=== PATIENT | female | born 1980 | race Caucasian/White ===

== ENCOUNTER 2019-06-07 09:36 | Emergency (ER) | payer BC ==
[2019-06-07] MEDS ORDERED: Sodium Chloride 0.9% 10 ML Syringe FLUSH PRN (10:12)
[2019-06-07] MEDS ORDERED: Loratadine 10 MG Tab PO ONE (10:12)
[2019-06-07] MEDS ORDERED: Sodium Chloride 0.9% 1,000 ML IV SCH (10:15)
--- NOTE | 2019-06-07 11:47 | EDM.PDOC ---
ED HPI GENERAL MEDICAL PROBLEM - General Chief Complaint: Allergic Reaction Stated Complaint: POSS ALLERGIC REACTION TO MED Time Seen by Provider: 06/07/19 10:01 Source of Information: Reports: Patient, RN Notes Reviewed - History of Present Illness INITIAL COMMENTS - FREE TEXT/NARRATIVE: Patient was sent here from [facility] for further evaluation and treatment Assubel allergic reaction. Patient took a dose of Profen this morning for headache and then started feeling weak, dizzy, nauseated. She felt like there was swelling of her tongue. [place] some numbness of her upper extremities rash or hives. Walk-in clinic [facility] was uncomfortable with the symptoms and transferred her here for further evaluation. Does not have history of known allergies. He has taken ibuprofen many times in the past without difficulty. She did not pass out this morning but did feel quite lightheaded for a period of time, feels better now. This and tingling is gone but she states it "comes and goes". Continues to have no rash or hives on arrival to ED. 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: - Past Surgical History Musculoskeletal Surgical History: Reports: Shoulder Surgery, Other (See Below) Other Musculoskeletal Surgeries/Procedures:: Recent shoulder lap for spur Social & Family History - Family History Family Medical History: Noncontributory - Tobacco Use Smoking Status *Q: Never Smoker Second Hand Smoke Exposure: No - Caffeine Use Caffeine Use: Reports: Coffee - Recreational Drug Use Recreational Drug Use: No ED ROS ALLERGIC REACTION - Review of Systems Review Of Systems: See Below Constitutional: Denies: Fever, Chills, Diaphoresis HEENT: Reports: Other (Patient felt like her tongue was swelling at home and at the clinic, better at time of evaluation). Denies: Throat Pain Respiratory: Denies: Shortness of Breath, Wheezing Cardiovascular: Denies: Chest Pain GI/Abdominal: Reports: Nausea. Denies: Abdominal Pain, Vomiting Musculoskeletal: Denies: Arm Pain Skin: Denies: Rash, Erythema Neurological: Reports: Dizziness (Neurolysed), Headache, Numbness, Tingling (On) , Weakness ED EXAM GENERAL NO PERIP PULSE - Physical Exam Exam: See Below General Appearance: Alert, Anxious (Mild) Eye Exam: Bilateral Eye: PERRL Throat/Mouth: Normal Inspection, Normal Oropharynx Head: No: Facial Swelling Neck: Supple, Full Range of Motion Respiratory/Chest: No Respiratory Distress, Lungs Clear, Normal Breath Sounds. No: Rhonchi, Wheezing Cardiovascular: Regular Rate, Rhythm GI/Abdominal: Non-Tender Back Exam: No: CVA Tenderness (L), CVA Tenderness (R) Extremities: Normal Inspection, Normal Range of Motion Neurological: Alert, Oriented, No Motor/Sensory Deficits Skin Exam: Warm, Dry, Normal Color, No Rash Course - Vital Signs Last Recorded V/S: Last Vital Signs Temp 97.0 F 06/07/19 09:45 Pulse 61 06/07/19 09:45 Resp 14 06/07/19 09:45 BP 126/85 06/07/19 09:45 Pulse Ox 99 06/07/19 09:45 - Orders/Labs/Meds Orders: Active Orders 24 hr Category Date Time Status POC Glucose [Blood Glucose Check, Bedside] [RC] ONETIME Care 06/07/19 10:11 Active Peripheral IV Care [RC] . DIRECTED Care 06/07/19 10:12 Active Peripheral IV Insertion Adult [OM.PC] Stat Oth 06/07/19 10:12 Ordered Labs: Laboratory Tests 06/07/19 06/07/19 06/07/19 Range/Units 10:15 10:15 10:20 WBC 6.22 (3.98-10.04) K/mm3 RBC 4.77 (3.98-5.22) M/mm3 Hgb 13.9 (11.2-15.7) gm/dl Hct 42.1 (34.1-44.9) % MCV 88.3 (79.4-94.8) fl MCH 29.1 (25.6-32.2) pg MCHC 33.0 (32.2-35.5) g/dl RDW Std Deviation 38.8 (36.4-46.3) fL Plt Count 204 (182-369) K/mm3 MPV 11.8 (9.4-12.3) fl Neut % (Auto) 70.5 (34.0-71.1) % Lymph % (Auto) 21.1 (19.3-51.7) % [place]ardo % (Auto) 7.1 (4.7-12.5) % Eos % (Auto) 0.8 (0.7-5.8) Baso % (Auto) 0.2 (0.1-1.2) % Neut # (Auto) 4.39 (1.56-6.13) K/mm3 Lymph # (Auto) 1.31 (1.18-3.74) K/mm3 [place]ardo # (Auto) 0.44 H (0.24-0.36) K/mm3 Eos # (Auto) 0.05 (0.04-0.36) K/mm3 Baso # (Auto) 0.01 (0.01-0.08) K/mm3 Sodium 140 (136-145) mEq/L Potassium 3.8 (3.5-5.1) mEq/L Chloride 106 (98-107) mEq/L Carbon Dioxide 25 (21-32) mEq/L Anion Gap 12.8 (5-15) BUN 14 (7-18) mg/dL Creatinine 0.8 (0.55-1.02) mg/dL Est Cr Clr Drug Dosing 97.13 mL/min Estimated GFR (MDRD) > 60 (>60) mL/min BUN/Creatinine Ratio 17.5 (14-18) Glucose 98 (74-106) mg/dL POC Glucose 91 (70-105) mg/dL Calcium 8.6 (8.5-10.1) mg/dL Total Bilirubin 0.7 (0.2-1.0) mg/dL AST 19 (15-37) U/L ALT 36 (14-59) U/L Alkaline Phosphatase 91 (46-116) U/L Total Protein 7.6 (6.4-8.2) g/dl Albumin 4.0 (3.4-5.0) g/dl Globulin 3.6 gm/dL Albumin/Globulin Ratio 1.1 (1-2) Meds: Medications Discontinued Medications Generic Name Dose Route Start Last Admin Trade Name Freq PRN Reason Stop Dose Admin Sodium Chloride 1,000 mls @ 999 mls/hr 06/07/19 10:15 06/07/19 10:28 Normal Saline IV 999 mls/hr ONETIME LEILANI Administration Loratadine 10 mg 06/07/19 10:12 03/14/20 10:28 Claritin PO 06/07/19 10:13 10 mg ONETIME ONE Administration Sodium Chloride 10 ml 06/07/19 10:12 06/07/19 10:28 Saline Flush FLUSH 10 ml ASDIRECTED PRN Administration Keep Vein Open - Re-Assessments/Exams Free Text/Narrative Re-Assessment/Exam: 06/07/19 19:39 CBC CMP were normal. Glucose 91. Did give a dose of Claritin 10 mg p.o., also did give 1 L normal saline while checking lab work. She did feel better at time of discharge. Discharge instructions as documented. Departure - Departure Time of Disposition: 11:44 Disposition: Home, Self-Care 01 Condition: Fair Clinical Impression: Dizziness, Near syncope Adverse drug effect Qualifiers: Encounter type: initial encounter Qualified Code(s): T50.905A - Adverse effect of unspecified drugs, medicaments and biological substances, initial encounter - Discharge Information Instructions: Near-Syncope, [id number], Dizziness, [id number] Referrals: Ro Fulton PA-C [Primary Care Provider] - Forms: ED Department Discharge Additional Instructions: Avoid ibuprofen, Advil or Motrin for at least 2 weeks. If and when you do try it again probably just take 1 200 mg tablet as a test dose to see if you have continued side effects. Drink plenty water to maintain hydration. Careful bland diet as tolerated. Follow-up with your clinic provider if not getting back to normal within 1 to 2 days as expected, return to ED as needed if symptoms worsening in any way. Sepsis Event Note - Evaluation Sepsis Screening Result: No Definite Risk - Focused Exam Vital Signs: Vital Signs Temp Pulse Resp BP Pulse Ox 06/07/19 09:45 97.0 F 61 14 126/85 99 Date Exam was Performed: 06/07/19 Time Exam was Performed: 19:36 - My Orders Last 24 Hours: My Active Orders 06/07/19 10:11 POC Glucose [Blood Glucose Check, Bedside] [] ONETIME 06/07/19 10:12 Peripheral IV Care [RC] . DIRECTED Peripheral IV Insertion Adult [OM.PC] Stat - Assessment/Plan Last 24 Hours: My Active Orders 06/07/19 10:11 POC Glucose [Blood Glucose Check, Bedside] [] ONETIME 06/07/19 10:12 Peripheral IV Care [RC] . DIRECTED Peripheral IV Insertion Adult [OM.PC] Stat
== END 2019-06-07 12:01 | disposition home or self-care (01) ==
LOC: JD.ED 09:36
DX: R55 Syncope and collapse (principal); R11.0 Nausea; T39.315A Adverse effect of propionic acid derivatives, initial encounter
CPT/HCPCS: 36415; 80053; 82962; 85025; 96360; 99283; A9270; J7030